=== PATIENT | male | born 1985 | race American Indian/Alaskan Native ===

== ENCOUNTER 2021-08-16 11:05 | Emergency (ER) | payer BC ==
--- NOTE | 2021-08-16 11:49 | Emergency Department Report ---
ED Shortness of Breath HPI - General Chief Complaint: Dyspnea/Respdistress Stated Complaint: SOB Time Seen by Provider: 08/16/21 11:36 Source: patient Mode of arrival: Ambulatory Limitations: No Limitations - History of Present Illness Initial Comments: Mr. Tejeda is a 35 years old morbidly obese male with no significant past medical history. Patient presented to the ER complaining of shortness of breath for the last 2 days. 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 Patient denied any chest pain. He also denied any fever but stated that he has some chills last night. Patient denied any abdominal pain, nausea or vomiting. MD Complaint: shortness of breath -: days(s) Severity: moderate Consistency: intermittent - Related Data Home Medications Medication Instructions Recorded Confirmed Last Taken No Known Home Medications [No 08/16/21 08/16/21 Unknown Reported Home Medications] Allergies Allergy/AdvReac Type Severity Reaction Status Date / Time No Known Allergies Allergy Verified 08/16/21 11:10 ED Review of Systems ROS: Stated complaint: SOB Other details as noted in HPI Comment: All other systems reviewed and negative Constitutional: denies: chills, fever Respiratory: shortness of breath. denies: cough, SOB with exertion, SOB at rest, stridor, wheezing Cardiovascular: denies: chest pain, palpitations, dyspnea on exertion Gastrointestinal: denies: abdominal pain, nausea, vomiting, diarrhea, constipation, hematemesis Musculoskeletal: denies: back pain Neurological: denies: headache, weakness, numbness, paresthesias, confusion ED Past Medical Hx - Medications Home Medications: Home Medications Medication Instructions Recorded Confirmed Last Taken Type No Known Home Medications [No 08/16/21 08/16/21 Unknown History Reported Home Medications] ED Physical Exam - General Limitations: No Limitations General appearance: alert, in no apparent distress - Head Head exam: Present: atraumatic, normocephalic, normal inspection - Eye Eye exam: Present: normal appearance, PERRL - ENT ENT exam: Present: normal exam, normal orophraynx, mucous membranes moist - Neck Neck exam: Present: normal inspection, full ROM. Absent: tenderness, meningismus - Respiratory Respiratory exam: Present: normal lung sounds bilaterally - Cardiovascular Cardiovascular Exam: Present: regular rate, normal rhythm, normal heart sounds - GI/Abdominal GI/Abdominal exam: Present: soft, normal bowel sounds. Absent: distended, tenderness, guarding, rebound, rigid, organomegaly, mass, bruit, pulsatile mass, hernia - Extremities Exam Extremities exam: Present: normal inspection, full ROM, normal capillary refill. Absent: tenderness - Back Exam Back exam: Present: normal inspection, full ROM. Absent: CVA tenderness (R), CVA tenderness (L) - Neurological Exam Neurological exam: Present: alert, oriented X3, CN II-XII intact, normal gait, reflexes normal. Absent: motor sensory deficit - Psychiatric Psychiatric exam: Present: normal mood - Skin Skin exam: Present: warm, intact, normal color ED Course Vital Signs 08/16/21 08/16/21 08/16/21 11:10 11:32 12:45 Temperature 98.3 F 98.5 F Pulse Rate 89 89 Respiratory 18 22 Rate Blood Pressure 150/93 Blood Pressure 152/85 [Left] O2 Sat by Pulse 99 98 98 Oximetry 08/16/21 12:48 Temperature Pulse Rate 86 Respiratory 18 Rate Blood Pressure Blood Pressure 144/94 [Left] O2 Sat by Pulse 97 Oximetry ED Medical Decision Making - Lab Data Result diagrams: 08/16/21 12:02 08/16/21 12:02 - EKG Data -: EKG Interpreted by In EKG shows normal: sinus rhythm Rate: normal - EKG Data Interpretation: no acute changes - Radiology Data Radiology results: report reviewed - Medical Decision Making Mr. Tejeda is a 35 years old morbidly obese male with no significant past medical history. Patient presented to the ER complaining of shortness of breath for the last 2 days. 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 Patient denied any chest pain. He also denied any fever but stated that he has some chills last night. Patient denied any abdominal pain, nausea or vomiting. EKG showed inverted T waves into the inferior leads. Labs reviewed and is unremarkable. Chest x-ray showed no significant abnormalities. D-dimer is negative. Troponin is negative and BNP is unremarkable. Patient advised to follow-up with his primary care physician in the next 2 to 3 days and to return to the ER if he develop any new symptoms. Critical care attestation.: If time is entered above; I have spent that time in minutes in the direct care of this critically ill patient, excluding procedure time. ED Disposition Clinical Impression: Shortness of breath Disposition: 01 HOME / SELF CARE / HOMELESS Is pt being admited?: No Condition: Stable Instructions: Shortness of Breath, Adult, [id number] Referrals: PRIMARY CARE, [Primary Care Provider] - 3-5 Days
[2021-08-16 12:37] LABS: Basophils % (Auto) 0.3 % (0.0-1.8); Eosinophils # (Auto) 0.1 K/mm3 (0.0-0.4); Eosinophils % (Auto) 0.6 % (0.0-4.3); Hemoglobin 13.8 gm/dl (11.8-15.2); Lymphocytes # (Auto) 2.1 K/mm3 (1.2-5.4); Lymphocytes % (Auto) 18.9 % (13.4-35.0); Mean Corpuscular HGB Conc 35 % (32-34); Mean Corpuscular Volume 93 fl (84-94); Monocytes # (Auto) 0.5 K/mm3 (0.0-0.8); Platelet Count 281 K/mm3 (140-440); Red Blood Count 4.28 M/mm3 (3.65-5.03); Red Cell Distribution Width 12.9 % (13.2-15.2)
--- NOTE | 2021-08-16 12:48 | XRay Report ---
CHEST 2 VIEWS INDICATION: Dyspnea. COMPARISON: None FINDINGS: Support devices: None. Heart: Within normal limits. Lungs/pleura: No acute air space or interstitial disease. No pneumothorax. Additional findings: None. IMPRESSION: No acute findings. Signer Name: Juan Carlos Ortega Jr, MD Signed: 08/16/2021 12:44 PM Workstation Name: [id number]
[2021-08-16 12:55] LABS: BUN/Creatinine Ratio 11; Blood Urea Nitrogen 12 mg/dL (9-20); Calcium 9.3 mg/dL (8.4-10.2); Hemolysis Index 11
[2021-08-16 12:59] LABS: Alanine Aminotransferase 44 units/L (7-56); Albumin 4.5 g/dL (3.9-5)
[2021-08-16 13:14] LABS: Bilirubin,Direct < 0.2 mg/dL (0-0.2)
[2021-08-16 13:29] VITALS: BP 144/94
--- NOTE | 2021-08-23 14:23 | Electrocardiograph Report ---
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
== END 2021-08-16 13:45 | disposition home or self-care (01) ==
LOC: ED 11:05
DX: R06.02 Shortness of breath (principal)
CPT/HCPCS: 36415; 71046; 80048; 80076; 83880; 84484; 85025; 85379; 93005; 99283